=== PATIENT | male | born 2005 | race Asian ===

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

== ENCOUNTER 2023-08-29 18:43 | Emergency (ER) | payer MEDICAID, OTHER ==
[~2023-08-29] VITALS: Ht 160 cm; Wt 56.8 kg
[~2023-08-29 18:43] MED LIST: levetiracetam inj 500 MG in normal saline 100ml IV soln 100 ML IV ONE
[2023-08-29 19:43] VITALS: TEMP 98
[2023-08-29 21:02] VITALS: BP 109/71; PULSE 71; RESP 18; O2SAT 99
== END 2023-08-29 21:04 | disposition home or self-care (01) ==
LOC: ER 18:45
DX: G40.909 Epilepsy, unspecified, not intractable, without status epilepticus (principal); R55 Syncope and collapse; Z91.148 Patient's other noncompliance with medication regimen for other reason; Z56.0 Unemployment, unspecified
CPT/HCPCS: 36415; 80177; 82948; 96365; 99284; J1953; J3490